=== PATIENT | male | born 2000 | race Caucasian/White ===

== ENCOUNTER 2022-05-28 14:20 | Emergency (ER) | payer OTHER ==
[~2022-05-28] VITALS: Ht 180.3 cm; Wt 74.8 kg
== END 2022-05-28 14:38 | disposition home or self-care (01) ==
LOC: ER 14:20
DX: Z20.3 Contact with and (suspected) exposure to rabies (principal); Z23 Encounter for immunization
CPT/HCPCS: 90471; 99282-25